=== PATIENT | male | born 1950 | race Caucasian/White ===

== ENCOUNTER 2023-05-11 13:32 | Outpatient (OUT) | payer MEDICARE, SELFPAY ==
[2023-05-11 14:09] LABS: Hematocrit 40.1 % (42.0-54.0); Hemoglobin 13.5 g/dL (14.0-18.0); Mean Corpuscular HGB Conc 33.7 g/dL (29.9-35.2); Mean Corpuscular Hemoglobin 31.6 pg (25.9-34.0); Mean Corpuscular Volume 93.9 fL (80.0-94.0); Mean Platelet Volume 9.3 fL (9.5-13.5); Platelet Count 112 10^3/uL (150-450); Red Blood Count 4.27 10^6/uL (4.70-6.10); Red Cell Distribution Width 13.5 % (11.0-15.0); White Blood Count 11.9 10^3/uL (4.0-11.0)
[2023-05-11 14:44] LABS: Eosinophils Absolute Manual 0.71 10^3/uL (0.00-0.70); Lymphocytes Absolute Manual 6.54 10^3/uL (1.20-3.80); Monocytes Absolute Manual 0.83 10^3/uL (0.30-0.80)
[2023-05-11 14:45] LABS: Smudge Cells SEEN
== END 2023-05-11 13:33 | disposition home or self-care (01) ==
LOC: LAB 13:39
PROVIDERS: PCP Internal Medicine; Visit Provider Internal Medicine
DX: D69.6 Thrombocytopenia, unspecified (principal); D72.820 Lymphocytosis (symptomatic)
CPT/HCPCS: 36415; 85007; 85025; 85027

== ENCOUNTER 2023-05-17 09:23 | Outpatient (OUT) | payer MEDICARE, SELFPAY ==
--- NOTE | 2023-05-17 09:29 | CT_ITS ---
[address] [address] Patient Name: COLETTE KIM MRN: [id number] date: 1950 Sex: M Assigned Patient Location: CT Current Patient Location: CT Accession/Order Number: [id number] Exam Date: 05/17/2023 09:30 Report Date: 05/17/2023 10:07 At the request of: SHAYNE CONNER Procedure: CT lung screening low-dose EXAM: CT lung screening low-dose HISTORY: nicotine dependence F17.211 ; technologist notes state former smoker and no complaints. COMPARISON: None. TECHNIQUE: Routine low-dose CT lung screen without intravenous contrast. FINDINGS: Cardiovascular: Mild multivessel coronary artery calcifications. Mild atheromatous calcification along the aortic arch and at the origin of the right subclavian artery. Lungs: Centrilobular emphysema. Nodules: Right: There is a 0.3 cm noncalcified perifissural nodule along the right minor fissure (series 3 image 99). There is a 0.3 cm noncalcified right middle lobe nodule (series 3 image 112). There is a 0.4 cm noncalcified nodule right lateral costophrenic angle (series 3 image 135). There is a 0.3 cm noncalcified right lower lobe nodule (series 3 image 122). There is a 0.7 x 0.6 x 0.5 cm noncalcified right lower lobe nodule (series 3 image 102). There is a 0.5 cm noncalcified right upper lobe nodule which appears to be between two bronchi (series 3 image 51). There is a 0.4 cm noncalcified right upper lobe nodule which may be endobronchial (series 3 image 57). Left: There is a 0.2 cm noncalcified perifissural nodule left mid chest (series 3 image 85). There is a 0.2 cm noncalcified left lower lobe nodule (series 3 image 106). There is a 0.3 cm noncalcified left lower lobe nodule (series 3 image 124). There is a 0.3 cm noncalcified perifissural nodule left mid chest (series 3 image 76). There is a 0.4 cm noncalcified left lower lobe nodule (series 3 image 99). There is a 0.6 cm noncalcified left lower lobe nodule (series 3 image 115). There is a 0.3 cm noncalcified left lower lobe nodule with a cyst series 3 image 87). There is a 0.3 cm noncalcified left lower lobe nodule (series 3 image 68). Lymphadenopathy: There are no pathologically enlarged lymph nodes. Other: Mild bilateral gynecomastia. The trachea, esophagus and thyroid gland are unremarkable. Upper abdomen: Unremarkable. Osseous: Degenerative changes at both humeral heads and postoperative changes at the left humeral head. Postop changes cervical spine. Severe discogenic degenerative changes at T1-2. Small endplate spurs at several levels along the lower thoracic spine. Less than 5% anterior wedging of the T7-T12 vertebral bodies. CT/CT lung screening low-dose IMPRESSION: Centrilobular emphysema. Numerous noncalcified nodules within the bilateral chest ranging in size from 0.2 cm to 0.7 cm. There is a 0.4 cm noncalcified right upper lobe nodule which may be endobronchial (series 3 image 57). There are no pathologically enlarged lymph nodes. A low-dose CT examination of the chest in 3 months is recommended. Additional findings as described in the body the report. Lung rads score 4 A. Electronically authenticated by: TONYA MULTANI Date: 05/17/2023 10:07
== END 2023-05-17 09:24 | disposition home or self-care (01) ==
LOC: CT 09:23
PROVIDERS: PCP Internal Medicine; Visit Provider Internal Medicine
DX: J43.2 Centrilobular emphysema (principal); F17.211 Nicotine dependence, cigarettes, in remission; R91.8 Other nonspecific abnormal finding of lung field
CPT/HCPCS: 71271

== ENCOUNTER 2024-04-03 09:40 | Emergency (ER) | payer MEDICARE, SELFPAY ==
[2024-04-03 09:49] VITALS: BP 174/89; PULSE 71; TEMP 36.8; O2SAT 98; BMI 27.5
--- NOTE | 2024-04-03 09:57 | ED.ABDPAIN1 ---
HPI - Abdominal Pain General Chief Complaint: Abdominal Pain Stated Complaint: ABDOMINAL PAIN BLOODY STOOL SENT BY DR CONNER Time Seen by Provider: 04/03/24 09:46 Source: patient Limitations: no limitations History of Present Illness HPI narrative: 73-year-old male to the emergency department with chief complaint of intermittent abdominal cramping and diarrhea that is been ongoing for the last 2 weeks. He reports that it happens near daily. This morning he had an episode and had a small amount of bright red blood in the stool. He is otherwise at his baseline health. Denies any nausea or vomiting. Denies any fever, sweats, chills. He is currently asymptomatic. He is not on any blood thinning medications. Past medical history: Hypercholesterolemia Related Data Home Medications ?Medication ?Instructions ?Recorded ?Confirmed simvastatin 20 mg tablet 20 mg PO DAILY 04/03/24 04/03/24 Previous Rx's ?Medication ?Instructions ?Recorded amoxicillin 875 mg-potassium 1 tab PO TID 7 days #14 tabs 04/03/24 clavulanate 125 mg tablet Allergies Allergy/AdvReac Type Severity Reaction Status Date / Time No Known Drug Allergies Allergy Verified 04/03/24 09:49 Review of Systems ROS Status of ROS 10 or more systems reviewed and unremarkable except as noted in history and below PFSH PFSH Social History Little interest or pleasure in doing things: not at all Feeling down, depressed, or hopeless: not at all Exam Narrative Exam Narrative: VITALS: I have reviewed the triage vital signs. GENERAL: Well developed, well appearing adult in no acute distress. NEURO: Alert and oriented. Moves all extremities. Face is symmetric and expressive. EYES: PERRL. No scleral icterus or conjunctival injection. No discharge. HENT: Normocephalic, atraumatic. Hearing is grossly intact. Nares grossly patent and without discharge. Mucous membranes moist. NECK: No JVD. Patient moves neck without restriction. CARDIO: Rhythm regular. Normal rate. No murmur, rub, or gallop. Pulses equal bilaterally in the upper and lower extremity. No lower extremity edema. PULM: Lungs clear to auscultation in all castillo. No wheezes, rales, or rhonchi. No conversational dyspnea. No splinting, stridor, or accessory muscle use. GI/: Abdomen is soft and non-tender. Normoactive bowel sounds. EXTREMITIES: Symmetric muscle bulk. No joint swelling. No clubbing, cyanosis, or deformity. SKIN: Warm and dry. Normal turgor. No rash or lesions appreciated. PSYCH: Mood, affect, and interaction is appropriate to the setting. Constitutional Vital Signs, click to edit/add: Last Vital Signs Temp 98.3 F 04/03/24 09:49 Pulse 71 04/03/24 09:49 Resp 16 04/03/24 09:49 BP 174/89 H 04/03/24 09:49 Pulse Ox 98 04/03/24 09:49 O2 Del Method Room Air 04/03/24 09:49 Course Vital Signs Vital signs: Vital Signs Temperature 98.3 F 04/03/24 09:49 Pulse Rate 71 04/03/24 09:49 Respiratory Rate 16 04/03/24 09:49 Blood Pressure 174/89 H 04/03/24 09:49 Pulse Oximetry 98 04/03/24 09:49 Oxygen Delivery Method Room Air 04/03/24 09:49 Temperature 98.3 F 04/03/24 09:49 Pulse Rate 71 04/03/24 09:49 Respiratory Rate 16 04/03/24 09:49 Blood Pressure 174/89 H 04/03/24 09:49 Pulse Oximetry 98 04/03/24 09:49 Oxygen Delivery Method Room Air 04/03/24 09:49 MDM - Abdominal Pain MDM Narrative Medical decision making narrative: Well-appearing 73-year-old male to the emergency department with chief complaint of 2 weeks of intermittent abdominal cramping associated with diarrhea. Small amount of bright red blood in the stool this morning prompting ED visit. Vitals are stable, the patient is afebrile. His abdominal examination is benign. Will obtain basic labs, CT imaging of his abdomen pelvis. Patient agrees with this plan. Lab work reviewed and noted. No significant abnormalities. He had a mild leukocytosis. CT with colitis/diverticulitis of the sigmoid colon. Patient's vitals remained stable. Abdominal exam remains benign. He said no more blood in the stool. Hemoglobin normal. Patient is comfortable plan for outpatient management. Augmentin as prescribed. Referral back to his primary care doctor. We discussed colonoscopy and he does not wish to have anymore in the future. Return precautions were discussed. All questions were answered. The patient was discharged home. Medical Records Attestation: I reviewed the patient's medical records. Lab Data Attestation: I reviewed the patient's lab results. Labs: Lab Results 04/03/24 Range/Units 10:23 WBC 15.0 H (4.0-11.0) 10^3/uL RBC 4.50 L (4.70-6.10) 10^6/uL Hgb 14.5 (14.0-18.0) g/dL Hct 41.9 L (42.0-54.0) % MCV 93.1 (80.0-94.0) fL MCH 32.2 (25.9-34.0) pg MCHC 34.6 (29.9-35.2) g/dL RDW 13.4 (11.0-15.0) % Plt Count 95 L (150-450) 10^3/uL MPV 9.8 (9.5-13.5) fL Seg Neuts % (Manual) 50.0 (43.0-75.0) Lymphocytes % (Manual) 46.0 (20.5-60.0) % Monocytes % (Manual) 4.0 (1.7-12.0) % Eosinophils % (Manual) 0.0 L (0.9-7.0) % Basophils % (Manual) 0.0 L (0.2-2.0) % Neutrophils # (Manual) 7.50 H (1.4-6.5) 10^3/uL Lymphocytes # (Manual) 6.90 H (1.20-3.80) 10^3/uL Monocytes # (Manual) 0.60 (0.30-0.80) 10^3/uL Eosinophils # (Manual) 0.00 (0.00-0.70) 10^3/uL Basophils # (Manual) 0.00 (0.00-0.10) 10^3/uL Sodium 141 (136-145) mmol/L Potassium 4.9 (3.5-5.1) mmol/L Chloride 106 (98-107) mmol/L Carbon Dioxide 26.6 (21.0-32.0) mmol/L Anion Gap 13.3 BUN 17.0 (7.0-18.0) mg/dL Creatinine 1.14 (0.70-1.30) mg/dL Est GFR ( Amer) >60 (>=60 mL/min/1.73m^2) Est GFR (Non-Af Amer) >60 (>=60 mL/min/1.73m^2) BUN/Creatinine Ratio 14.9 Glucose 119 H (74-106) mg/dL Lactate 1.0 (0.4-2.0) mmol/L Calcium 9.1 (8.5-10.1) mg/dL Total Bilirubin 0.9 (0.2-1.0) mg/dL AST 23 (15-37) U/L ALT 15 L (16-63) U/L Alkaline Phosphatase 53 (46-116) U/L Total Protein 6.7 (6.4-8.2) g/dL Albumin 3.8 (3.4-5.0) g/dL Globulin 2.9 g/dL Albumin/Globulin Ratio 1.[address] scan - abdomen: Attestation: I have reviewed the pertinent imaging results. Radiologist's impression: See separate document in PACS Discharge Plan Discharge Chief Complaint: Abdominal Pain Clinical Impression: Diverticulitis Patient Disposition: Home, Self-Care Time of Disposition Decision: 11:49 Condition: Good Mode of Transportation: Private Vehicle Prescriptions / Home Meds: New amoxicillin-pot clavulanate 875-125 mg tablet 1 tab PO TID 7 Days Qty: 14 0RF No Action simvastatin 20 mg tablet 20 mg PO DAILY Print Language: Luxembourgish Instructions: Diverticulitis (ED) Additional Instructions: Call the office of your primary care doctor to arrange for follow-up within the above-stated timeframe. Your ED visit was focused on your acute issue and does not replace primary care. You should review your labs, imaging, and diagnoses from this ED visit with your primary care physician. There may be non-emergent/ incidental findings that need further evaluation. You should review your vital signs including blood pressure with your PCP. If you were prescribed medications you should discuss possible side-effects and drug interactions with your pharmacist. Call 911 or go to the nearest Emergency Department if you develop any new or worsening symptoms. Seek immediate medical attention if you develop: worsening abdominal pain, new or worsening nausea, new or worsening vomiting, new or worsening diarrhea, chest pain, shortness of breath, pain with urination, problems urinating, fever, chills, weakness, or any new or worsening symptoms. Discussed need for colonoscopy with your doctor. Referrals: Rick Conner DO [Primary Care Provider] - 1 week
[2024-04-03 10:28] LABS: Hematocrit 41.9 % (42.0-54.0); Hemoglobin 14.5 g/dL (14.0-18.0); Mean Corpuscular HGB Conc 34.6 g/dL (29.9-35.2); Mean Corpuscular Hemoglobin 32.2 pg (25.9-34.0); Mean Corpuscular Volume 93.1 fL (80.0-94.0); Mean Platelet Volume 9.8 fL (9.5-13.5); Platelet Count 95 10^3/uL (150-450); Red Cell Distribution Width 13.4 % (11.0-15.0)
[2024-04-03 10:44] LABS: Alanine Aminotransferase 15 U/L (16-63); Albumin Globulin Ratio 1.3; Albumin Level 3.8 g/dL (3.4-5.0); Alkaline Phosphatase 53 U/L (46-116); Anion Gap 13.3; Aspartate Amino Transferase 23 U/L (15-37); BUN Creatinine Ratio 14.9; Bilirubin Total 0.9 mg/dL (0.2-1.0); Calcium 9.1 mg/dL (8.5-10.1); Carbon Dioxide 26.6 mmol/L (21.0-32.0); Chloride 106 mmol/L (98-107); Estimated GFR (African America >60 (>=60 mL/min/1.73m^2); Estimated GFR (Non-African Ame >60 (>=60 mL/min/1.73m^2); Globulin 2.9 g/dL; Glucose 119 mg/dL (74-106); Potassium 4.9 mmol/L (3.5-5.1); Sodium 141 mmol/L (136-145); Total Protein 6.7 g/dL (6.4-8.2)
[2024-04-03 11:54] VITALS: BP 165/88; PULSE 69; O2SAT 96
== END 2024-04-03 12:00 | disposition home or self-care (01) ==
PROVIDERS: Emergency Provider Student in an Organized Health Care Education/Training Program; PCP Internal Medicine
DX: K57.92 Diverticulitis of intestine, part unspecified, without perforation or abscess without bleeding (principal); R10.84 Generalized abdominal pain; R19.7 Diarrhea, unspecified; K92.1 Melena
CPT/HCPCS: 36415; 74177; 80053; 83605; 85007; 85027; 99284; Q9967